=== PATIENT | male | born 1965 | race Caucasian/White ===

== ENCOUNTER 2017-04-28 21:25 | Emergency (ER) | payer SELFPAY ==
[2017-04-28 22:03] VITALS: BP 112/76; PULSE 118; RESP 20; TEMP 98.2; O2SAT 96
--- NOTE | 2017-04-28 22:28 | C.PDOC ---
Time Seen by Provider: 04/28/17 22:27 Chief Complaint (Nursing): Substance Abuse Past Medical History Vital Signs: Last Vital Signs Temp 98.2 F 04/28/17 21:58 Pulse 118 H 04/28/17 21:58 Resp 20 04/28/17 21:58 BP 112/76 04/28/17 21:58 Pulse Ox 96 04/28/17 21:58 Family History: States: Unknown Family Hx - Social History Hx Tobacco Use: Yes Hx Alcohol Use: Yes Hx Substance Use: Yes - Immunization History Hx Tetanus Toxoid Vaccination: No Hx Influenza Vaccination: No Hx Pneumococcal Vaccination: No ED Course And Treatment O2 Sat by Pulse Oximetry: 96 Disposition Counseled Patient/Family Regarding: Studies Performed, Diagnosis - Disposition Disposition Time: 22:28
== END 2017-04-28 22:51 | disposition left against medical advice (07) ==
LOC: C.ER 21:25
DX: Z02.89 Encounter for other administrative examinations (principal); F19.10 Other psychoactive substance abuse, uncomplicated

== ENCOUNTER 2017-04-29 03:06 | Inpatient (IN) | payer OTHER ==
--- NOTE | 2017-04-29 04:00 | C.PDOC ---
History Of Present Illness 52 yo male w/PMHx of alcohol abuse come in for evaluation of abdominal pain. Pt sts, "dont feel good". Pt request, psych evaluation, reports " dont want to live anymore". Pt has no plan. Denies any other active physical complaints. Time Seen by Provider: 04/29/17 03:31 Chief Complaint (Nursing): Medical Clearance History Per: Patient Past Medical History Reviewed: Historical Data, Nursing Documentation, Vital Signs Vital Signs: Last Vital Signs Temp 98 F 04/29/17 06:50 Pulse 83 04/29/17 06:50 Resp 20 04/29/17 06:50 BP 126/78 04/29/17 06:50 Pulse Ox 98 04/29/17 06:50 - Medical History PMH: Asthma Family History: States: Unknown Family Hx - Social History Hx Tobacco Use: Yes Hx Alcohol Use: Yes Hx Substance Use: Yes - Immunization History Hx Tetanus Toxoid Vaccination: No Hx Influenza Vaccination: No Hx Pneumococcal Vaccination: No Review Of Systems Except As Marked, All Systems Reviewed And Found Negative. Constitutional: Negative for: Fever, Chills ENT: Negative for: Throat Pain Cardiovascular: Negative for: Chest Pain, Palpitations Respiratory: Negative for: Cough, Shortness of Breath Gastrointestinal: Positive for: Abdominal Pain. Negative for: Nausea, Vomiting , Diarrhea, Melena, Hematochezia, Hematemesis Genitourinary: Negative for: Dysuria, Incontinence Musculoskeletal: Negative for: Neck Pain, Back Pain Skin: Negative for: Rash Neurological: Negative for: Altered Mental Status, Headache, Dizziness Physical Exam - Physical Exam Appears: Well, Non-toxic, No Acute Distress Skin: Normal Color, Warm, Dry, No Rash Head: Normacephalic Eye(s): bilateral: PERRL Nose: No Flaring, No Discharge Oral Mucosa: Moist, No Drooling, Other ((+)strong alcohol odor) Tongue: Normal Appearing Lips: Normal Appearing Neck: Trachea Midline, No Midline Cervical Tenderness, No Paracervical Tenderness, No Step Off Deformity, Supple Cardiovascular: Rhythm Regular Respiratory: No Decreased Breath Sounds, No Accessory Muscle Use, No Stridor, No Wheezing Gastrointestinal/Abdominal: Soft, No Tenderness, No Distention, No Guarding Back: No Vertebral Tenderness Extremity: Normal ROM, No Pedal Edema, No Deformity Neurological/Psych: Oriented x3, Normal Speech ED Course And Treatment - Laboratory Results Result Diagrams: 04/29/17 04:23 04/29/17 04:23 Lab Interpretation: No Acute Changes O2 Sat by Pulse Oximetry: 95 Pulse Ox Interpretation: Normal Progress Note: At 4:00AM, Blood work review and appears normal. On re-eval, pt sleeping comforatbly, not in any apparent distress. AFebrile, hemodynamicaly stable. Easily arousable to verbal stimuli. Neuorlogicaly intact. Alcohol level 213, pt will be cleared for psych evaluation at 7:00AM Disposition - Disposition Disposition Time: 07:00 Condition: STABLE Forms: [employer] (Uzbek) - Clinical Impression Clinical Impression: Depression, Alcohol abuse Physician Patient Turnover Patient Signed Over To: Rochelle Hook Handoff Comments: PES EVALUATION, DISPO
[2017-04-29 04:37] LABS: BASO % 0.5 % (0.0-2.0); EOS % 0.5 % (0.0-4.0); HEMOGLOBIN 10.2 g/dL (12.0-18.0); LYMPH # 0.7 K/uL (1.0-4.3); LYMPH % 8.7 % (20.0-40.0); MEAN CELL VOLUME 71.9 fL (80.0-94.0); MEAN CORPUSCULAR HEMOGLOBIN 22.7 pg (27.0-31.0); MEAN CORPUSCULAR HGB CONC 31.6 g/dL (33.0-37.0); MEAN PLATELET VOLUME 7.7 fL (7.2-11.7); MONO # 0.7 K/uL (0.0-0.8); NEUT % 82.3 % (50.0-75.0); PLATELET COUNT 208 K/uL (130-400); RBC 4.46 Mil/uL (4.40-5.90); WHITE BLOOD COUNT 8.5 K/uL (4.8-10.8)
[2017-04-29 04:39] LABS: ALB/GLOB RATIO 1.2 (1.0-2.1); ALT/SGPT 57 U/L (21-72); AST/SGOT 75 U/L (17-59); BLOOD UREA NITROGEN 13 mg/dL (9-20); CALCIUM 7.5 mg/dl (8.6-10.4); GFR AFRICAN-AMERICAN > 60; GFR NON-AFRICAN AMERICAN > 60; LIPASE 204 U/L (23-300)
[2017-04-29 04:41] LABS: SQUAMOUS EPITHIAL < 1 /hpf (0-5); URINE BILIRUBIN NEGATIVE (NEGATIVE); URINE CALCIUM OXALATE CRYSTALS OCC /hpf (<OCC); URINE CLARITY Clear (Clear); URINE COLOR Yellow (YELLOW); URINE GLUCOSE (UA) NORMAL (Normal); URINE LEUKOCYTE ESTERASE NEG Leu/uL (Negative); URINE NITRATE NEGATIVE (NEGATIVE); URINE PROTEIN 2+ mg/dL (NEGATIVE)
[2017-04-29 04:44] LABS: URINE BLOOD TRACE (NEGATIVE)
[2017-04-29 04:45] LABS: BARBITURATES, UR NEGATIVE (NEGATIVE); BENZODIAZEPINES, UR NEGATIVE (NEGATIVE); OPIATES, UR NEGATIVE (NEGATIVE); PHENCYCLIDINE, UR NEGATIVE (NEGATIVE)
[2017-04-29 05:58] LABS: BANDS 2 % (0-2); LYMPHOCYTE 6 % (20-40); MONOCYTE 8 % (0-10); NEUTROPHIL 84 % (50-75); PLATELET ESTIMATE NORMAL (NORMAL); TOTAL CELLS COUNTED 100
--- NOTE | 2017-04-29 12:20 | PCM.PSYCH ---
Initial Psychiatric Evaluation - Initial Psychiatric Evaluation Type of Admission: Voluntary Legal Status: Capacity Chief Complaint (in patient's own words): "I need help" History of Present Illness and Precipitating Events: The patient is seen, chart reviewed and case discussed. This is a 52-year-old male, with 3 children all adults, unemployed since February 2017. Lives alone but currently homeless. The patient is here for alcohol detox; drinking up to 3 pints a day since age 12 but it became a problem after age 16. However, this is his first detox. Never had seizures but he may have had DTs in the past. Currently he is starting to withdrawal. He also uses cocaine the last 2 years old intranasally or sometimes crack. Not every day, he states. He denies all other drugs Denies major psych problems but has mild anxiety and depression due to his living circumstances. Past psych history: No treatments no admissions but has been depressed in the past. Family psych history: Siblings use alcohol. Medical history: Asthma Current Medications: Active Medications Generic Name Dose Route Start Last Admin Trade Name Freq PRN Reason Stop Dose Admin Chlordiazepoxide 25 mg 04/29/17 14:00 Librium PO 05/04/17 13:59 Q6 YEHUDA Taper Chlordiazepoxide 25 mg 04/29/17 12:01 Librium PO Q4H PRN Alcohol Withdrawal Clonidine HCl 0.1 mg 04/29/17 12:01 Catapres PO Q4H PRN Symptoms of alcohol withdrawl Folic Acid 1 mg 04/29/17 12:15 Folic Acid PO DAILY YEHUDA Gabapentin 300 mg 04/29/17 14:00 Neurontin PO TID YEHUDA Hydroxyzine HCl 50 mg 04/29/17 12:06 Atarax PO Q6H PRN Anxiety Ibuprofen 600 mg 04/29/17 12:06 Motrin Tab PO Q6H PRN Pain, moderate (4-7) Multivitamins 1 tab 04/29/17 12:15 Hexavitamin PO DAILY YEHUDA Thiamine HCl 100 mg 04/29/17 12:15 Vitamin B1 Tab PO DAILY YEHUDA Trazodone HCl 100 mg 04/29/17 12:03 Desyrel PO HS PRN Insomnia Past Psychiatric History - Past Psychiatric History Previous Treatment History: None Pertinent Medical Hx (Current Medical&Sleep Prob, Allergies): Allergies Allergy/AdvReac Type Severity Reaction Status Date / Time No Known Allergies Allergy Verified 04/29/17 03:26 No Known Home Med [No Known Home Med] 07/19/14 Review of Systems - Neurological Neurological: Tremor - Psychiatric Psychiatric: Abnormal Sleep Pattern, Anxiety, Change in Appetite, Difficulty Concentrating. absent: Hallucinations, Homicidal Ideation, Paranoia, Suicidal Ideation Mental Status Examination - Personal Presentation Personal Presentation: Looks stated age - Affect Affect: Constricted - Motor Activity Motor Activity: Calm - Reliability in Providing Information Reliability in Providing Information: Good - Speech Speech: Organized - Mood Mood: Anxious - Formal Thought Process Formal Thought Process: No Impairment - Cognitive Functions Orientation: Person, Place, Situation, Time Sensorium: Alert Attention/Concentration: Attentive Estimate of Intelligence: Average Judgement: Intact, as evidence by: Insight regarding need for hospitalization Memory: Recent intact, as evidence by: Ability to recall events of the day, Remote intact, as evidenced by: Ability to recall historical events - Risk Risk: Withdrawal, Diminished functioning - Strength & Assets Inventory Strength & Assets Inventory: Cooperative - Limitations Limitations: Living alone DSM 5 DX - DSM 5 DSM 5 Diagnosis: Alcohol withdrawal Alcohol use d/o- severe Cocaine use d/o- severe Anxiety d/o -unspecified - Recommended/Plan of Treatment Treatment Recommendations and Plan of Treatment: Librium detox Gabapentin for augmentation As needed medications All risks, benefits and alternatives of the meds discussed, and the pt agreed and understood. Attend groups and activities Supportive therapy and psychoeducation [place] for abstinence CBT for relapse prevention Encourage MAT Refer to rehab or IOP, and self-help groups Smoking cessation with [place] Nicotine patch 34 min Projected ELOS: 4-5 days Prognosis: good w treatment - Smoking Cessation Smoking Cessation Initiated: Yes
--- NOTE | 2017-04-29 12:25 | PCM.BM ---
<Eleonora Shah - Last Filed: 04/29/17 12:24> Treatment Plan Problems - Problems identified on initial assessmt Alcohol use disorder Date Initiated: 04/29/17 Time Initiated: 12:00 Assessment reference: NA Status: Active Treatment assets and liabiliti Patient Assests: adapts well, cooperative, insightful, self-reliant, ADL independent Patient Liabilities: live alone, financial problems, poor support system, substance abuse - Milieu Protocol Maintain good personal hygiene: daily Encourage regular showers, daily Remind patient to perform daily oral care, daily Assist patient to perform ADL's, every shift Encourage regular showers, every shift Remind patient to perform daily oral care, every shift Assist patient to perform ADL's Maintain personal safety: daily Educate patient to report safety concerns to staff, daily Monitor environment for contraband/sharps, every shift Educate patient to report safety concerns to staff, every shift Monitor environment for contraband/sharps Medication safety: Monitor for expected outcome, potential side effects: daily, every shift, Assess barriers to learning: daily, every shift, Assess readiness for medication education: daily, every shift <Radha Moreland - Last Filed: 04/30/17 14:47> - Diagnosis (1) Alcohol dependence Status: Acute Interventions: 04/30/17 14:47 * Assess 7x/week regarding severity of withdrawal * Educate regarding risks, benefits, side effects and alternatives of medications * Use Motivational Interviewing for abstinence * Use CBT for relapse prevention * Medication management for withdrawal symptoms * Encourage medication assisted treatment * <Margot Solorio - Last Filed: 05/03/17 16:23> Family Contact Family involvement: No known Family/SO - Goals for Treatment Patient goals for treatment: Complete detox and apply for the [employer] in [place].
[2017-04-29] MEDS: Multiple Vitamins Tab PO SCH (12:33)
[2017-04-29] MEDS: Bacitracin Ointment 30 GM TUBE TOP SCH (17:07)
[2017-04-30] MEDS: Multiple Vitamins Tab PO SCH (10:49)
[2017-04-30] MEDS: Bacitracin Ointment 30 GM TUBE TOP SCH ×2 (10:49→17:05)
--- NOTE | 2017-04-30 12:48 | PCM.PYCHPN ---
Psychiatric Progress Note - Psychiatric Progress Note Patient seen today, length of contact: 16 min Patient Chief Complaint: "Better today" Problems Identified/Issues Discussed: The pt is seen, chart reviewed, case discussed with staff. The pt is compliant with medications and reports no side-effects. Symptoms are improving but needs more time to stabilize. After care discussed, support and psychoeducation given. Asked for an antidepressant bc of low mood and anxiety and it is not related to alcohol he claims Medication Change: Yes (etox changes daily) Medical Record Reviewed: Yes Mental Status Examination - Cognitive Function Orientation: Person, Place, Situation, Time Memory: Intact Attention: WNL Concentration: Poor Association: WNL Fund of Knowledge: WNL - Mood Mood: Anxious - Affect Affect: Constricted - Speech Speech: Appropriate - Formal Thought Process Formal Thought Process: No Impairment - Suicidal Ideation Suicidal Ideation: No - Homicidal Ideation Homicidal Ideation: No Goal/Treatment Plan - Goal/Treatment Plan Need for Continued Stay: Discharge may exacerbated symptoms, Severe functional impairment Progress Toward Problem(s) and Goals/Treatment Plan: Librium detox Gabapentin for augmentation Zoloft 50 mg for dep/anx sxs As needed medications All risks, benefits and alternatives of the meds discussed, and the pt agreed and understood. Attend groups and activities Supportive therapy and psychoeducation [place] for abstinence CBT for relapse prevention Encourage MAT Refer to rehab or IOP, and self-help groups Smoking cessation with [place] Nicotine patch
[2017-04-30] MEDS: Albuterol HFA 90 mcg/actuation (8 g) INH PRN (21:16)
[2017-05-01] MEDS: Multiple Vitamins Tab PO SCH (09:13)
[2017-05-01] MEDS: guaiFENesin 200 mg/10 ml Syrup UD PO PRN ×3 (09:14→21:09)
[2017-05-01] MEDS: Albuterol HFA 90 mcg/actuation (8 g) INH PRN ×2 (09:14→16:55)
[2017-05-01] MEDS: Bacitracin Ointment 30 GM TUBE TOP SCH ×2 (09:47→17:29)
--- NOTE | 2017-05-01 10:14 | PCM.PYCHPN ---
Psychiatric Progress Note - Psychiatric Progress Note Patient seen today, length of contact: 16 min Patient Chief Complaint: I am feeling better.' Problems Identified/Issues Discussed: Patient seen and evaluated, chart reviewed and discussed with the nurse. The patient reports improvement in his mood and reports improvement in withdrawal symptoms. He still reports anxiety, headaches and sweating. As per the nurse patient is improving. He denies any suicidal ideation or homicidal ideation. Patient is taking medications and denies any side effects. Symptoms are improving but needs more time for stabilization. Supportive therapy and psychoeducation were given. Medication Change: Yes (etox changes daily) Medical Record Reviewed: Yes Mental Status Examination - Cognitive Function Orientation: Person, Place, Situation, Time Memory: Intact Attention: WNL Concentration: Poor Association: WNL Fund of Knowledge: WNL - Mood Mood: Anxious - Affect Affect: Constricted - Speech Speech: Appropriate - Formal Thought Process Formal Thought Process: No Impairment - Suicidal Ideation Suicidal Ideation: No - Homicidal Ideation Homicidal Ideation: No Goal/Treatment Plan - Goal/Treatment Plan Need for Continued Stay: Discharge may exacerbated symptoms, Severe functional impairment Progress Toward Problem(s) and Goals/Treatment Plan: Alcohol withdrawal Alcohol use d/o- severe Cocaine use d/o- severe Anxiety d/o -unspecified Librium detox Gabapentin for augmentation As needed medications All risks, benefits and alternatives of the meds discussed, and the pt agreed and understood. Attend groups and activities Supportive therapy and psychoeducation [place] for abstinence CBT for relapse prevention Encourage MAT Refer to rehab or IOP, and self-help groups Smoking cessation with [place] Nicotine patch - Smoking Cessation Smoking Cessation Initiated: No
[2017-05-02] MEDS: Albuterol HFA 90 mcg/actuation (8 g) INH PRN ×4 (00:57→21:12)
[2017-05-02] MEDS: Multiple Vitamins Tab PO SCH (10:56)
[2017-05-02] MEDS: Bacitracin Ointment 30 GM TUBE TOP SCH ×2 (10:58→17:18)
[2017-05-02] MEDS: guaiFENesin 200 mg/10 ml Syrup UD PO PRN ×3 (11:36→21:11)
--- NOTE | 2017-05-02 12:36 | PCM.PYCHPN ---
Psychiatric Progress Note - Psychiatric Progress Note Patient seen today, length of contact: 16 min Patient Chief Complaint: I am feeling better.' Problems Identified/Issues Discussed: Patient seen and evaluated, chart reviewed and discussed with the nurse. The patient reports that his mood is improving and has started socializing. He reports improvement in his mood and reports improvement in withdrawal symptoms. He still reports anxiety, headaches and sweating. As per the nurse patient is improving. He denies any suicidal ideation or homicidal ideation. Patient is taking medications and denies any side effects. Symptoms are improving but needs more time for stabilization. Supportive therapy and psychoeducation were given. Medication Change: Yes (etox changes daily) Medical Record Reviewed: Yes Mental Status Examination - Cognitive Function Orientation: Person, Place, Situation, Time Memory: Intact Attention: WNL Concentration: Poor Association: WNL Fund of Knowledge: WNL - Mood Mood: Anxious - Affect Affect: Constricted - Speech Speech: Appropriate - Formal Thought Process Formal Thought Process: No Impairment - Suicidal Ideation Suicidal Ideation: No - Homicidal Ideation Homicidal Ideation: No Goal/Treatment Plan - Goal/Treatment Plan Need for Continued Stay: Discharge may exacerbated symptoms, Severe functional impairment Progress Toward Problem(s) and Goals/Treatment Plan: Alcohol withdrawal Alcohol use d/o- severe Cocaine use d/o- severe Anxiety d/o -unspecified Librium detox Gabapentin for augmentation As needed medications All risks, benefits and alternatives of the meds discussed, and the pt agreed and understood. Attend groups and activities Supportive therapy and psychoeducation [place] for abstinence CBT for relapse prevention Encourage MAT Refer to rehab or IOP, and self-help groups Smoking cessation with [place] Nicotine patch - Smoking Cessation Smoking Cessation Initiated: No
[2017-05-03] MEDS ORDERED: Albuterol 0.083% Inhal Sol (2.5 mg/3 mL) UD INH PRN (00:13)
[2017-05-03] MEDS: guaiFENesin 200 mg/10 ml Syrup UD PO PRN ×3 (01:29→21:22)
[2017-05-03] MEDS: Multiple Vitamins Tab PO SCH (09:53)
[2017-05-03] MEDS: Bacitracin Ointment 30 GM TUBE TOP SCH ×2 (10:37→17:15)
--- NOTE | 2017-05-03 13:19 | PCM.PYCHPN ---
Psychiatric Progress Note - Psychiatric Progress Note Patient seen today, length of contact: 16 min Patient Chief Complaint: "Nervous" Problems Identified/Issues Discussed: The pt is seen, chart reviewed, case discussed with staff. Support given, CBT and [place] used briefly No new symptoms reported, improving slowly and needs more time No SEs from medications, risks discussed. After care discussed Medication Change: Yes (detox changes daily) Medical Record Reviewed: Yes Mental Status Examination - Cognitive Function Orientation: Person, Place, Situation, Time Memory: Intact Attention: WNL Concentration: Poor Association: WNL Fund of Knowledge: WNL - Mood Mood: Anxious - Affect Affect: Constricted - Speech Speech: Appropriate - Formal Thought Process Formal Thought Process: No Impairment - Suicidal Ideation Suicidal Ideation: No - Homicidal Ideation Homicidal Ideation: No Goal/Treatment Plan - Goal/Treatment Plan Need for Continued Stay: Discharge may exacerbated symptoms, Severe functional impairment Progress Toward Problem(s) and Goals/Treatment Plan: Librium detox Gabapentin for augmentation Zoloft 50 mg for dep/anx sxs As needed medications All risks, benefits and alternatives of the meds discussed, and the pt agreed and understood. Attend groups and activities Supportive therapy and psychoeducation [place] for abstinence CBT for relapse prevention Encourage MAT Refer to rehab or IOP, and self-help groups Smoking cessation with [place] Nicotine patch
--- NOTE | 2017-05-04 08:43 | PCM.PYCHDC ---
Mental Status Examination - Mental Status Examination Orientation: Person, Place, Situation, Time Discharge Summary - Discharge Note Consultations:: List each consultation separately and include: 1. Reason for request. 2. Findings. 3. Follow-up Summary of Hospital Course include:: 1. Description of specific treatment plan utilized for patients during their course of treatmen. 2. Summarize the time- course for resolution of acute symptoms and/or regressed behaviors. 3. Describe issues identified and worked on during hospitalization. 4. Describe medication utilized. 5. Describe medical problems identified and treated. 6. Reassessment of suicide risk Summary of Hospital Course: The patient is seen, chart reviewed and case discussed. This is a 52-year-old male, with 3 children all adults, unemployed since February 2017. Lives alone but currently homeless. The patient is here for alcohol detox; drinking up to 3 pints a day since age 12 but it became a problem after age 16. However, this is his first detox. Never had seizures but he may have had DTs in the past. Currently he is starting to withdrawal. He also uses cocaine the last 2 years old intranasally or sometimes crack. Not every day, he states. He denies all other drugs Denies major psych problems but has mild anxiety and depression due to his living circumstances. Past psych history: No treatments no admissions but has been depressed in the past. Family psych history: Siblings use alcohol. Medical history: Asthma He went to [facility] in . He was motivated and cooperative. He could not afford Trazodone but got the Zoloft. - Diagnosis (1) Alcohol dependence Current Visit: Yes Status: Acute - Final Diagnosis (DSM 5) Condition upon Discharge: STABLE Disposition: HOME/ ROUTINE Follow-up Treatment Plan: Librium detox Gabapentin for augmentation Zoloft 50 mg for dep/anx sxs As needed medications All risks, benefits and alternatives of the meds discussed, and the pt agreed and understood. Attend groups and activities Supportive therapy and psychoeducation [place] for abstinence CBT for relapse prevention Encourage MAT Refer to rehab or IOP, and self-help groups Smoking cessation with [place] Nicotine patch Prescriptions/Medication Reconciliation: Sertraline [Zoloft] 50 mg PO DAILY #30 tab traZODone [Desyrel] 50 mg PO HS PRN #30 tab PRN Reason: Insomnia
[2017-05-04] MEDS: Multiple Vitamins Tab PO SCH (09:11)
[2017-05-04] MEDS: Bacitracin Ointment 30 GM TUBE TOP SCH (09:12)
[2017-05-04] MEDS: guaiFENesin 200 mg/10 ml Syrup UD PO PRN (09:15)
[2017-05-04 09:45] VITALS: BP 109/72; PULSE 81; RESP 18; TEMP 97.3; O2SAT 95
== END 2017-05-04 11:00 | disposition home or self-care (01) | DRG 751 ==
LOC: C.ER 03:06 → C.9E 08:56 → C.7D 11:10
PROVIDERS: ADMIT Psychiatry & Neurology Psychiatry; ATTEND Psychiatry & Neurology Psychiatry
PROC: HZ2ZZZZ Detoxification Services for Substance Abuse Treatment (ICD-10-PCS; principal; 2017-04-29)
PROC: HZ46ZZZ Group Counseling for Substance Abuse Treatment, Psychoeducation (ICD-10-PCS; 2017-04-29)
PROC: HZ59ZZZ Individual Psychotherapy for Substance Abuse Treatment, Supportive (ICD-10-PCS; 2017-04-29)
PROC: GZ3ZZZZ Medication Management (ICD-10-PCS; 2017-04-29)
PROC: HZ90ZZZ Pharmacotherapy for Substance Abuse Treatment, Nicotine Replacement (ICD-10-PCS; 2017-04-29)
DX: F10.239 Alcohol dependence with withdrawal, unspecified (principal); F14.90 Cocaine use, unspecified, uncomplicated; F32.9 Major depressive disorder, single episode, unspecified; F41.9 Anxiety disorder, unspecified; J45.909 Unspecified asthma, uncomplicated; F17.200 Nicotine dependence, unspecified, uncomplicated; Z59.0 Homelessness; Z79.899 Other long term (current) drug therapy

== ENCOUNTER 2017-07-27 15:05 | Emergency (ER) | payer MEDICAID, OTHER ==
[2017-07-27 15:36] VITALS: BMI 29.4
[2017-07-27] MEDS ORDERED: Sodium Chloride 0.9% 1,000 ML IV ONE (16:22)
[2017-07-27] MEDS ORDERED: Sodium Chloride 0.9% 1,000 ML ONE (16:32)
[2017-07-27 16:49] LABS: BASO # 0.1 K/uL (0.0-0.2); BASO % 1.1 % (0.0-2.0); EOS # 0.1 K/uL (0.0-0.7); EOS % 1.5 % (0.0-4.0); HEMOGLOBIN 10.4 g/dL (12.0-18.0); LYMPH # 1.9 K/uL (1.0-4.3); LYMPH % 20.3 % (20.0-40.0); MEAN CORPUSCULAR HEMOGLOBIN 21.8 pg (27.0-31.0); MEAN PLATELET VOLUME 8.4 fL (7.2-11.7); NEUT # 6.1 K/uL (1.8-7.0); NEUT % 66.1 % (50.0-75.0); RBC 4.79 Mil/uL (4.40-5.90); RED CELL DISTRIBUTION WIDTH 16.7 % (11.5-14.5); WHITE BLOOD COUNT 9.3 K/uL (4.8-10.8)
[2017-07-27 16:58] LABS: URINE BACTERIA RARE (<OCC); URINE BILIRUBIN NEGATIVE (NEGATIVE); URINE CLARITY Hazy (Clear); URINE COLOR Yellow (YELLOW); URINE GLUCOSE (UA) NORMAL (Normal); URINE LEUKOCYTE ESTERASE NEG Leu/uL (Negative); URINE PROTEIN NEGATIVE (NEGATIVE); URINE UROBILINOGEN NORMAL mg/dL (0.2-1.0)
[2017-07-27 16:59] LABS: URINE BLOOD 1+ (NEGATIVE)
[2017-07-27 17:02] LABS: ALB/GLOB RATIO 1.3 (1.0-2.1); ALBUMIN 4.2 g/dL (3.5-5.0); ALT/SGPT 23 U/L (21-72); AST/SGOT 22 U/L (17-59); BLOOD UREA NITROGEN 12 mg/dL (9-20); CALCIUM 8.3 mg/dl (8.6-10.4); GFR AFRICAN-AMERICAN > 60; GFR NON-AFRICAN AMERICAN > 60; LIPASE 106 U/L (23-300)
[2017-07-27 17:18] LABS: BARBITURATES, UR NEGATIVE (NEGATIVE); BENZODIAZEPINES, UR NEGATIVE (NEGATIVE); OPIATES, UR NEGATIVE (NEGATIVE); PHENCYCLIDINE, UR NEGATIVE (NEGATIVE)
--- NOTE | 2017-07-27 17:56 | C.PDOC ---
Time Seen by Provider: 07/27/17 16:03 Chief Complaint (Nursing): Abdominal Pain History Per: Patient Onset/Duration Of Symptoms: Days (a few months), Intermittent Episodes Current Symptoms Are (Timing): Still Present Severity: Moderate Location Of Pain/Discomfort: Diffuse Quality Of Discomfort: Unable To Describe, "Pain" Associated Symptoms: Nausea, Vomiting Exacerbating Factors: Food Additional History Per: Prior Records Past Medical History Reviewed: Historical Data, Nursing Documentation, Vital Signs Vital Signs: Last Vital Signs Temp 98.0 F 07/27/17 15:37 Pulse 75 07/27/17 15:37 Resp 18 07/27/17 15:37 BP 133/76 07/27/17 15:37 Pulse Ox 99 07/27/17 15:37 - Medical History PMH: Asthma, Depression Surgical History: No Surg Hx - [facility] DETOXIFICATION SERVICES FOR SUBSTANCE ABUSE TREATMENT (04/29/17) GROUP SEARCH ENGINEER FOR SUBSTANCE ABUSE TREATMENT, PSYCHOEDUCATION (04/29/17) INDIV PSYCHOTHERAPY FOR SUBSTANCE ABUSE TREATMENT, SUPPORT (04/29/17) MEDICATION MANAGEMENT (04/29/17) PHARMACOTHERAPY FOR SUBSTANCE ABUSE, NICOTINE REPLACE (04/29/17) Family History: States: Unknown Family Hx - Social History Hx Tobacco Use: Yes Hx Alcohol Use: No (PT DENIES ALCOHOL X 3 MONTHS) Hx Substance Use: No (PT DENIES) - Immunization History Hx Tetanus Toxoid Vaccination: No Hx Influenza Vaccination: No Hx Pneumococcal Vaccination: No Review Of Systems Except As Marked, All Systems Reviewed And Found Negative. Constitutional: Negative for: Fever Cardiovascular: Negative for: Chest Pain Respiratory: Negative for: Shortness of Breath Gastrointestinal: Positive for: Nausea, Vomiting, Abdominal Pain. Negative for : Diarrhea, Melena, Hematochezia, Hematemesis Genitourinary: Negative for: Dysuria, Scrotal Pain Musculoskeletal: Negative for: Neck Pain Skin: Negative for: Rash Neurological: Negative for: Weakness, Numbness Physical Exam - Physical Exam Appears: Non-toxic, No Acute Distress Skin: Normal Color, Warm, Dry, No Rash Head: Atraumatic, Normacephalic Eye(s): bilateral: PERRL, EOMI Neck: Normal ROM, Supple Cardiovascular: Rhythm Regular Respiratory: Normal Breath Sounds, No Accessory Muscle Use Gastrointestinal/Abdominal: Soft, No Tenderness Back: No CVA Tenderness Extremity: Normal ROM Neurological/Psych: Oriented x3, Normal Motor, Normal Sensation ED Course And Treatment - Laboratory Results Result Diagrams: 07/27/17 16:45 07/27/17 16:45 Lab Interpretation: No Acute Changes O2 Sat by Pulse Oximetry: 99 Pulse Ox Interpretation: Normal Progress - Interventions Interventions:: Observation, Intravenous fluid - Medications Administered Intravenous: Antiemetic, Other (PPI) - Data Reviewed Data Reviewed: Lab, Old records - Patient Status Patient status: Completely improved - Continuity of Care Discussed patient case with:: Patient, ED Nurse - Patient Plan Patient Plan: Discharge, F/U with PCP Disposition Counseled Patient/Family Regarding: Studies Performed, Diagnosis, Need For Followup, Rx Given, Smoking Cessation - Disposition Referrals: [facility] [Outside] Disposition: HOME/ ROUTINE Disposition Time: 17:57 Condition: IMPROVED Additional Instructions: Drink plenty of fluids. Follow up in the clinic for further evaluation and treatment. Return to the ER if you develop fever, vomiting, bloody or black stools, trouble urinating, worsening of symptoms or if you have any other concerns. Prescriptions: Metoclopramide [Reglan] 1 tab PO TID PRN #15 tab PRN Reason: Nausea/Vomiting Pantoprazole Sodium [Protonix] 40 mg PO DAILY #14 ect Instructions: Stomach Ache and Stomach Upset - Clinical Impression Clinical Impression: Abdominal pain, Nausea & vomiting
[2017-07-27 18:23] VITALS: BP 120/76; PULSE 68; RESP 16; TEMP 98.4; O2SAT 96
== END 2017-07-27 18:10 | disposition home or self-care (01) ==
LOC: C.ER 15:05
DX: R10.9 Unspecified abdominal pain (principal); R11.2 Nausea with vomiting, unspecified
CPT/HCPCS: 80053; 81001; 83690; 85025; 96361; 96374; 96375; 99284; C9113; G0480; J2765; J7040

== ENCOUNTER 2017-11-26 08:28 | Emergency (ER) | payer MEDICAID, OTHER ==
[2017-11-26 08:37] VITALS: BMI 29.2
[2017-11-26 09:42] LABS: BASO # 0.1 K/uL (0.0-0.2); BASO % 1.1 % (0.0-2.0); EOS # 0.2 K/uL (0.0-0.7); EOS % 2.8 % (0.0-4.0); HEMOGLOBIN 12.2 g/dL (12.0-18.0); LYMPH # 1.8 K/uL (1.0-4.3); LYMPH % 21.7 % (20.0-40.0); MEAN CELL VOLUME 72.1 fL (80.0-94.0); MEAN CORPUSCULAR HEMOGLOBIN 23.1 pg (27.0-31.0); MEAN PLATELET VOLUME 8.7 fL (7.2-11.7); MONO # 0.8 K/uL (0.0-0.8); MONO % 9.8 % (0.0-10.0); NEUT # 5.2 K/uL (1.8-7.0); NEUT % 64.6 % (50.0-75.0); RBC 5.3 Mil/uL (4.40-5.90); RED CELL DISTRIBUTION WIDTH 17.3 % (11.5-14.5); WHITE BLOOD COUNT 8.1 K/uL (4.8-10.8)
--- NOTE | 2017-11-26 10:03 | C.PDOC ---
History Of Present Illness 52yo male, PMHx includes EtOH abuse, presents to the emergency department with complaints of intermittent diffuse abdominal pain for three weeks. Patient reports he vomits after meals frequently. Patient denies any fever, chills, nausea, diarrhea, constipation, or any other associated symptoms. no urinary symptoms. pt seen for same in July and hasn't followed up. reports last drink 2 weeks ago. Time Seen by Provider: 11/26/17 08:42 Chief Complaint (Nursing): Abdominal Pain History Per: Patient History/Exam Limitations: no limitations Past Medical History Reviewed: Historical Data, Nursing Documentation, Vital Signs Vital Signs: Last Vital Signs Temp 97.8 F 11/26/17 11:23 Pulse 60 11/26/17 11:23 Resp 16 11/26/17 11:23 BP 131/83 11/26/17 11:23 Pulse Ox 96 11/28/17 00:46 - Medical History PMH: Asthma, Depression Denies: HIV, HTN, Chronic Kidney Disease, Seizures, Sexually Transmitted Disease - [facility] DETOXIFICATION SERVICES FOR SUBSTANCE ABUSE TREATMENT (04/29/17) GROUP MEDICAL DRIVER FOR SUBSTANCE ABUSE TREATMENT, PSYCHOEDUCATION (04/29/17) INDIV PSYCHOTHERAPY FOR SUBSTANCE ABUSE TREATMENT, SUPPORT (04/29/17) MEDICATION MANAGEMENT (04/29/17) PHARMACOTHERAPY FOR SUBSTANCE ABUSE, NICOTINE REPLACE (04/29/17) Family History: States: No Known Family Hx - Social History Hx Tobacco Use: Yes Hx Alcohol Use: Yes Hx Substance Use: No (PT DENIES) - Immunization History Hx Tetanus Toxoid Vaccination: No Hx Influenza Vaccination: No Hx Pneumococcal Vaccination: No Review Of Systems Constitutional: Negative for: Fever, Chills Cardiovascular: Negative for: Chest Pain Gastrointestinal: Positive for: Nausea, Vomiting, Abdominal Pain. Negative for : Diarrhea, Constipation Musculoskeletal: Negative for: Back Pain Physical Exam - Physical Exam Appears: Non-toxic, No Acute Distress Skin: Normal Color, Warm, Dry, No Rash Head: Atraumatic, Normacephalic Eye(s): bilateral: Normal Inspection Nose: Normal Oral Mucosa: Moist Lips: Normal Appearing Throat: No Erythema Neck: Normal ROM Cardiovascular: Rhythm Regular, No Murmur Respiratory: Normal Breath Sounds, No Accessory Muscle Use Gastrointestinal/Abdominal: Bowel Sounds, Soft, Tenderness (mild diffuse), No Distention, No Guarding, No Rebound Extremity: Normal ROM, No Deformity Neurological/Psych: Oriented x3, Normal Speech, Normal Cognition ED Course And Treatment - Laboratory Results Result Diagrams: 11/26/17 09:33 11/26/17 09:33 O2 Sat by Pulse Oximetry: 96 (RA) Pulse Ox Interpretation: Normal Medical Decision Making Medical Decision Making: Plan: * Bloodwork * Protonix, Tylenol * UA * Reassess and Disposition 1059 pt in no acute distress, abdomen soft, minimal tenderness in epigastric area. discussed with patient the importance of outpatient follow up with medical clinic and with gastroenterology. pt advised to keep diary of which foods make him vomit. Disposition Counseled Patient/Family Regarding: Studies Performed, Diagnosis, Need For Followup, Rx Given - Disposition Referrals: [facility] [Outside] Antonio Sterling MD [Staff Provider] - Disposition: HOME/ ROUTINE Disposition Time: 11:02 Condition: IMPROVED Additional Instructions: Please make soonest appointments with [facility] medical clinic and also with Dr Brown (fire hose curer). Please take anti-nausea medicine if needed as prescribed. Please keep diary of which foods make you vomit to bring with you to your appointments. Recommended to avoid acidy foods, greasy/fried foods, alcohol, chocolate, peppermint. . Prescriptions: Famotidine [Pepcid] 20 mg PO DAILY #14 tab Ondansetron ODT [Zofran ODT] 4 mg PO TID #20 odt Instructions: Nausea and Vomiting, Adult (DC), Gastritis (DC), Ulcer and Gastritis Diet Forms: [facility] (Swedish), General Discharge Instructions - Clinical Impression Clinical Impression: Nausea & vomiting, Gastritis - Scribe Statement The provider has reviewed the documentation as recorded by the Scribe (Kasey Burns) All medical record entries made by the Scribe were at my direction and personally dictated by me. I have reviewed the chart and agree that the record accurately reflects my personal performance of the history, physical exam, medical decision making, and the department course for this patient. I have also personally directed, reviewed, and agree with the discharge instructions and disposition.
[2017-11-26 10:05] LABS: URINE BILIRUBIN NEGATIVE (NEGATIVE); URINE BLOOD NEGATIVE (NEGATIVE); URINE CLARITY Clear (Clear); URINE COLOR Yellow (YELLOW); URINE GLUCOSE (UA) NORMAL (Normal); URINE LEUKOCYTE ESTERASE NEG Leu/uL (Negative); URINE PROTEIN NEGATIVE (NEGATIVE); URINE UROBILINOGEN NORMAL mg/dL (0.2-1.0)
[2017-11-26 10:08] LABS: ALB/GLOB RATIO 1.4 (1.0-2.1); ALBUMIN 4.5 g/dL (3.5-5.0); ALT/SGPT 46 U/L (21-72); AST/SGOT 34 U/L (17-59); BLOOD UREA NITROGEN 13 mg/dL (9-20); CALCIUM 9.2 mg/dl (8.6-10.4); GFR AFRICAN-AMERICAN > 60; GFR NON-AFRICAN AMERICAN > 60; LIPASE 185 U/L (23-300)
[2017-11-26 10:17] LABS: BARBITURATES, UR NEGATIVE (NEGATIVE); BENZODIAZEPINES, UR NEGATIVE (NEGATIVE); OPIATES, UR NEGATIVE (NEGATIVE); PHENCYCLIDINE, UR NEGATIVE (NEGATIVE)
[2017-11-26 11:23] VITALS: BP 131/83; PULSE 60; RESP 16; TEMP 97.8
[2017-11-28 00:45] VITALS: O2SAT 96
== END 2017-11-26 11:24 | disposition home or self-care (01) ==
LOC: C.ER 08:28
DX: K29.70 Gastritis, unspecified, without bleeding (principal); R11.2 Nausea with vomiting, unspecified; Z72.0 Tobacco use
CPT/HCPCS: 80053; 80320; 80324; 80345; 80346; 80349; 80353; 80358; 80361; 81001; 83690; 83992; 85025; 96374; 99285; C9113